=== PATIENT | male | born 1980 | race Caucasian/White ===

== ENCOUNTER 2025-06-10 14:13 | Emergency (ER) | payer OTHER ==
[~2025-06-10] VITALS: Ht 195.6 cm; Wt 133.7 kg
[2025-06-10] MEDS ORDERED: SODIUM CHLORIDE 0.9% 1,000 ML IV ONE ×2 (14:45→15:15)
[2025-06-10 14:46] LABS: BASOPHILS 0.5 % (0.2-1.2); EOSINOPHILS 3.4 % (0.8-7.0); LYMPHOCYTES 3.5 % (21.8-53.1); MCH 27.9 PG (25.7-32.2); MCHC 33.5 g/dL (32.3-36.5); MCV 83.2 fL (79.0-92.2); MONOCYTES 3.2 % (5.3-12.2); NEUTROPHILS 89.0 % (34.0-67.9); RBC 6.02 M/uL (4.63-6.08)
[2025-06-10 15:06] LABS: ALT (SGPT) 24.0 U/L (14-59); AST (SGOT) 21.0 U/L (15-37); GLOMERULAR FILTRATION RATE,EST 67.0 mL/min (>60); PROTEIN, TOTAL 8.7 g/dL (6.4-8.2); UREA NITROGEN 21.0 mg/dL (7-18)
[2025-06-10] MEDS ORDERED: DIPHENOXYLATE/ATROPINE 1 EA TAB PO ONE (15:15)
[2025-06-10 15:23] LABS: BLOOD/HGB, URINE NEGATIVE (Negative); KETONE, URINE >=80 (Negative); LEUK ESTERASE, URINE NEGATIVE (negative); NITRITE, URINE NEGATIVE (negative)
[2025-06-10 15:29] LABS: BACTERIA, URINE RARE /hpf (negative); CASTS, URINE NONE SEEN \\lpf; CRYSTALS, URINE NONE SEEN (0-1+); EPITHELIAL CELLS, URINE SQUAMOUS 1+ /lpf (0-1+)
[2025-06-10 15:30] LABS: REFLEX CULTURE, URINE No (No)
[2025-06-10] MEDS ORDERED: KETOROLAC TROMETHAMINE 30 MG/ML VIAL IV ONE (17:30)
[2025-06-10] MEDS ORDERED: ONDANSETRON 4 MG HOME.PACK SL ONE (17:30)
[2025-06-10] MEDS ORDERED: ACETAMINOPHEN 500 MG TAB PO ONE (17:30)
[2025-06-10 17:49] VITALS: BP 126/80
== END 2025-06-10 18:17 | disposition home or self-care (01) ==
LOC: ED 14:13
PROVIDERS: Emergency Medicine
DX: K52.9 Noninfective gastroenteritis and colitis, unspecified (principal)
CPT/HCPCS: 36415; 80053; 81001; 83735; 85025; 96361; 96374; 96375; 99284-25; A9270; J1885; J2405; J7030